=== PATIENT | male | born 1960 | race Caucasian/White ===

== ENCOUNTER → 2018-10-06 | Outpatient (CLI) | payer OTHER ==
[~2018-10-06] MED LIST: ASPIRIN 81M81 MG/TA2 PO; B-121000 MCG PO; COLACE 100100 MG/CAP; GLUCOPHAGE1000 MG PO; LANTUS100 U/ML SC; LIPITOR 40MG TA40 MG PO; NORCO 325 MG-51 TAB PO; PERCOCET 325 MG1 TA2 PO; PRINIVIL5 MG PO; TRICOR145 MG PO; VITAMIN D32000 I1 PO
== END ==
LOC: COL.RAD 09:05
DX: M25.551 Pain in right hip (principal)
CPT/HCPCS: J3301; Q9967

== ENCOUNTER → 2024-01-23 | Outpatient (CLI) | payer OTHER ==
[~2024-01-23] MED LIST changes: +Gadoterate 20 ML VIAL IV ONE
== END ==
LOC: COL.RAD 14:15
DX: H90.3 Sensorineural hearing loss, bilateral (principal)
CPT/HCPCS: A9575